=== PATIENT | male | born 1960 | race Hispanic/Latino ===

== ENCOUNTER → 2017-04-23 | Outpatient (CLI) | payer OTHER ==
[~2017-04-23] MED LIST: ATORVASTATIN CA10 MG PO; B COMPLEX WITH1 EAC1 PO; FOLIC ACID1 MG PO; GADOBUTROL 10 MMOL/10 ML VIAL IV ONE; INSULIN SQ; LACTULOSE20 GM/30 M PO; MULTI-VITAMIN1 EACH PO; OMEPRAZOLE40 MG PO; OSTERA TABLET1 EACH PO; PROPRANOLOL HCL10 MG PO; THIAMINE HCL100 MG PO; VIT K PO; XIFAXAN550 MG PO
--- NOTE | 2017-04-24 07:53 | Diagnostic Imaging Report ---
MRI abdomen, April 23, 2017 Clinical history: Possible liver mass on CT. Cirrhosis. Comparison: CT abdomen April 04, 2017 Technique: Multisequence, multiplanar liver protocol MRI before and after administration of 7.5 mL Gadavist intravenous contrast. Findings: Liver: Cirrhotic morphology with diffusely heterogeneous signal. Redemonstrated 1.7 cm focus of low signal within segment 8 without T2 hyperintensity or arterial enhancement. Gallbladder: Decompressed; normal Pancreas: Normal Spleen: Diffusely enlarged, with a span of 13 cm. Adrenal glands: Normal Kidneys: Normal Bowel: Image segments are grossly unremarkable. Mild thickening at the gastroesophageal junction with enhancement suggesting varices. Questionable adjacent GOV2 gastric varices. Vasculature: Normal caliber. Patent portal vein, with a diameter of 1.3 cm. Multiple splenic varices without conspicuous splenorenal shunt. Peritoneum: Normal. Specifically, no ascites. Study limitations: Extensive motion artifact limiting multiple sequences, including exclusion of the hepatic dome. Impression: 1. Cirrhotic liver with associated sequela of portal hypertension. 2. No evidence of focal liver mass. The questionable region noted on CT may represent focal scar. Continued attention to this region is needed on subsequent surveillance MRI. 3. Suspected gastroesophageal varices (GOV2) This report was generated with voice-recognition technology. Errors in airplane dispatcher can occur. Please interpret accordingly and contact a radiologist if there are any questions regarding the report. Signed by: Dr. Tucker Carmichael M.D. on 04/24/2017 7:49 AM
== END ==
LOC: MRI 16:35
PROVIDERS: ATTEND Internal Medicine Gastroenterology
DX: R10.84 Generalized abdominal pain (principal)
CPT/HCPCS: 74183; A9585

== ENCOUNTER → 2017-11-25 | Day surgery (SDC) | payer OTHER ==
[2017-11-18 16:22] LABS: BASOPHILS % 0.5 % (0.0-1.0); EOSINOPHILS # (AUTO) 0.1 (0.0-0.4); EOSINOPHILS % 2.2 % (0.0-6.0); HEMATOCRIT 35.9 % (38.2-49.6); HEMOGLOBIN 12.3 g/dL (14.0-18.0); LYMPHOCYTES # (AUTO) 1.5 (1.0-3.2); LYMPHOCYTES % 25.5 % (18.0-39.1); MEAN CORPUSCULAR HEMOGLOBIN 31.2 pg (28-32); MEAN CORPUSCULAR HGB CONC 34.3 g/dL (31-35); MEAN CORPUSCULAR VOLUME 91.1 fL (81-99); MONOCYTES # (AUTO) 0.7 (0.2-0.8); MONOCYTES % 12.4 % (4.4-11.3); NEUTROPHILS # (AUTO) 3.4 (2.1-6.9); NEUTROPHILS % 59.1 % (38.7-80.0); PLATELET COUNT 111 x10e3/uL (140-360); RED BLOOD COUNT 3.94 x10e6/uL (4.3-5.7)
[2017-11-18 16:57] LABS: INR 1.46; PROTHROMBIN TIME 16.7 seconds (11.9-14.5)
[2017-11-18 16:58] LABS: PARTIAL THROMBOPLASTIN TIME 37.5 seconds (23.8-35.5)
[2017-11-19 03:13] LABS: ALBUMIN 3.1 g/dL (3.5-5.0); ALBUMIN/GLOBULIN RATIO 0.6 (0.8-2.0); ALKALINE PHOSPHATASE 179 IU/L (40-150)
[2017-11-19 03:14] LABS: ANION GAP 13.9 mmol/L (8-16); BLOOD UREA NITROGEN 9 mg/dL (7-26); BUN/CREATININE RATIO 9 (6-25); CARBON DIOXIDE 23 mmol/L (22-29); CHLORIDE 102 mmol/L (98-107); CREATININE, SERUM 0.99 mg/dL (0.72-1.25); EST GLOMERULAR FILTRATION RATE > 60 ML/MIN (60-); GLUCOSE 344 mg/dL (74-118); POTASSIUM 3.9 mmol/L (3.5-5.1); SODIUM 135 mmol/L (136-145)
[2017-11-19 03:15] LABS: ALANINE AMINOTRANSFERASE 46 IU/L (0-55); CALCIUM 9.1 mg/dL (8.4-10.2)
[~2017-11-25] MED LIST changes: +DICYCLOMINE HCL10 MG; -GADOBUTROL 10 MMOL/10 ML VIAL IV ONE; +LEVEMIR100 UNIT/1; +LIDOCAINE HCL 2% LOCAL INJ 5 ML SDV VIAL INJ ONE; +PROMETHAZINE HC25 M1 PO; +PROPOFOL IV EMULSION 10 MG/ML 50 ML VIAL ONE
== END | disposition home or self-care (01) ==
LOC: OR 07:28
PROVIDERS: ATTEND Internal Medicine Gastroenterology
DX: K70.30 Alcoholic cirrhosis of liver without ascites (principal); K29.00 Acute gastritis without bleeding; I85.10 Secondary esophageal varices without bleeding; K29.50 Unspecified chronic gastritis without bleeding; K31.89 Other diseases of stomach and duodenum; B96.81 Helicobacter pylori [H. pylori] as the cause of diseases classified elsewhere; K76.6 Portal hypertension; K72.90 Hepatic failure, unspecified without coma; K21.9 Gastro-esophageal reflux disease without esophagitis; K44.9 Diaphragmatic hernia without obstruction or gangrene; I10 Essential (primary) hypertension; E11.9 Type 2 diabetes mellitus without complications; F41.9 Anxiety disorder, unspecified; F32.9 Major depressive disorder, single episode, unspecified; Z01.810 Encounter for preprocedural cardiovascular examination; Z01.812 Encounter for preprocedural laboratory examination; Z79.4 Long term (current) use of insulin
CPT/HCPCS: 36415 ×2; 43239; 80053; 82948; 85025; 85610; 85730; 93005; J2001

== ENCOUNTER → 2019-03-16 | Day surgery (SDC) | payer MEDICARE ==
[2019-03-08 10:28] LABS: BASOPHILS % 0.5 % (0.0-1.0); EOSINOPHILS # (AUTO) 0.2 (0.0-0.4); EOSINOPHILS % 2.7 % (0.0-6.0); HEMATOCRIT 35.3 % (38.2-49.6); HEMOGLOBIN 11.7 g/dL (14.0-18.0); LYMPHOCYTES # (AUTO) 1.1 (1.0-3.2); LYMPHOCYTES % 18.2 % (18.0-39.1); MEAN CORPUSCULAR HGB CONC 33.1 g/dL (31-35); MEAN CORPUSCULAR VOLUME 93.4 fL (81-99); MONOCYTES # (AUTO) 0.7 (0.2-0.8); MONOCYTES % 11.9 % (4.4-11.3); NEUTROPHILS % 66.4 % (38.7-80.0); PLATELET COUNT 123 x10e3/uL (140-360); RED BLOOD COUNT 3.78 x10e6/uL (4.3-5.7)
[2019-03-08 10:31] LABS: INR 1.33; PROTHROMBIN TIME 17.1 seconds (11.9-14.5)
[2019-03-08 10:32] LABS: PARTIAL THROMBOPLASTIN TIME 37.7 seconds (23.8-35.5)
[2019-03-08 10:39] LABS: ALANINE AMINOTRANSFERASE 31 IU/L (0-55); ALBUMIN 2.8 g/dL (3.5-5.0); ALBUMIN/GLOBULIN RATIO 0.6 (0.8-2.0); ALKALINE PHOSPHATASE 160 IU/L (40-150); ANION GAP 11.5 mmol/L (8-16); BLOOD UREA NITROGEN 9 mg/dL (7-26); BUN/CREATININE RATIO 10 (6-25); CALCIUM 9.1 mg/dL (8.4-10.2); CARBON DIOXIDE 25 mmol/L (22-29); CHLORIDE 100 mmol/L (98-107); CREATININE, SERUM 0.88 mg/dL (0.72-1.25); EST GLOMERULAR FILTRATION RATE > 60 ML/MIN (60-); GLUCOSE 377 mg/dL (74-118); POTASSIUM 4.5 mmol/L (3.5-5.1); SODIUM 132 mmol/L (136-145)
[~2019-03-16] MED LIST changes: +CENTRUM ADULTS1 EACH PO; +FAMOTIDINE20 MG PO; +FENTANYL CITRATE/PF 100MCG/2 ML INJ ONE; +FOLIC ACID-VIT1 EAC1 PO; +INSULIN REGULAR, HUMAN 100 UNIT/1 ML 3ML VIAL ONE; -LEVEMIR100 UNIT/1; +LEVEMIR100 UNIT/1 SQ; +LEXAPRO10 MG PO; -LIDOCAINE HCL 2% LOCAL INJ 5 ML SDV VIAL INJ ONE; +METOCLOPRAMIDE10 MG PO; +MIDAZOLAM HCL 2 MG/2 ML VIAL ONE; +VITAMIN B-121000 MCG PO
[2019-03-16 09:06] VITALS: BP 141/86
== END | disposition home or self-care (01) ==
LOC: OR 05:36
PROVIDERS: ATTEND Internal Medicine Gastroenterology
DX: K76.6 Portal hypertension (principal); K31.89 Other diseases of stomach and duodenum; K29.60 Other gastritis without bleeding; K70.30 Alcoholic cirrhosis of liver without ascites; I85.10 Secondary esophageal varices without bleeding; Q27.33 Arteriovenous malformation of digestive system vessel; K72.90 Hepatic failure, unspecified without coma; K21.9 Gastro-esophageal reflux disease without esophagitis; K64.8 Other hemorrhoids; R19.7 Diarrhea, unspecified; D64.9 Anemia, unspecified; R00.2 Palpitations; I10 Essential (primary) hypertension; E11.9 Type 2 diabetes mellitus without complications; Z01.810 Encounter for preprocedural cardiovascular examination; Z01.812 Encounter for preprocedural laboratory examination; Z79.4 Long term (current) use of insulin
CPT/HCPCS: 36415 ×2; 43239; 43244; 45378; 80053; 82948; 85025; 85610; 85730; 88305; 88312; 93005; J2250; J2704; J3010; 43255; J1817

== ENCOUNTER → 2019-04-13 | Day surgery (SDC) | payer MEDICARE ==
[2019-04-07 13:56] LABS: BASOPHILS % 0.6 % (0.0-1.0); EOSINOPHILS # (AUTO) 0.2 (0.0-0.4); EOSINOPHILS % 4.2 % (0.0-6.0); HEMATOCRIT 34.7 % (38.2-49.6); HEMOGLOBIN 11.5 g/dL (14.0-18.0); LYMPHOCYTES # (AUTO) 1.3 (1.0-3.2); LYMPHOCYTES % 26.5 % (18.0-39.1); MEAN CORPUSCULAR HEMOGLOBIN 30.3 pg (28-32); MEAN CORPUSCULAR HGB CONC 33.1 g/dL (31-35); MEAN CORPUSCULAR VOLUME 91.3 fL (81-99); MONOCYTES # (AUTO) 0.7 (0.2-0.8); MONOCYTES % 14.7 % (4.4-11.3); NEUTROPHILS # (AUTO) 2.7 (2.1-6.9); NEUTROPHILS % 53.8 % (38.7-80.0); PLATELET COUNT 123 x10e3/uL (140-360); RED CELL DISTRIBUTION WIDTH 15.1 % (11.7-14.4)
[2019-04-07 14:06] LABS: INR 1.32
[2019-04-07 14:16] LABS: ALANINE AMINOTRANSFERASE 28 IU/L (0-55); ALBUMIN 2.8 g/dL (3.5-5.0); ALBUMIN/GLOBULIN RATIO 0.6 (0.8-2.0); ALKALINE PHOSPHATASE 147 IU/L (40-150); BLOOD UREA NITROGEN 8 mg/dL (7-26); BUN/CREATININE RATIO 8 (6-25); CALCIUM 8.9 mg/dL (8.4-10.2); CARBON DIOXIDE 25 mmol/L (22-29); CHLORIDE 99 mmol/L (98-107); CREATININE, SERUM 0.96 mg/dL (0.72-1.25); EST GLOMERULAR FILTRATION RATE > 60 ML/MIN (60-); GLUCOSE 387 mg/dL (74-118); SODIUM 131 mmol/L (136-145)
[~2019-04-13] MED LIST changes: -INSULIN REGULAR, HUMAN 100 UNIT/1 ML 3ML VIAL ONE; +LIDOCAINE HCL 2% LOCAL INJ 5 ML SDV VIAL INJ ONE; +PROPOFOL IV EMULSION 10 MG/ML 20 ML VIAL ONE; -PROPOFOL IV EMULSION 10 MG/ML 50 ML VIAL ONE
[2019-04-13 16:00] VITALS: BP 123/83
== END | disposition home or self-care (01) ==
LOC: OR 11:52
PROVIDERS: ATTEND Internal Medicine Gastroenterology
DX: K31.89 Other diseases of stomach and duodenum (principal); E11.9 Type 2 diabetes mellitus without complications; I10 Essential (primary) hypertension; K70.30 Alcoholic cirrhosis of liver without ascites; K30 Functional dyspepsia; R13.10 Dysphagia, unspecified; K92.1 Melena; D64.9 Anemia, unspecified; R19.7 Diarrhea, unspecified; R00.2 Palpitations; I85.00 Esophageal varices without bleeding; K29.60 Other gastritis without bleeding; K29.50 Unspecified chronic gastritis without bleeding; K22.70 Barrett's esophagus without dysplasia; B96.81 Helicobacter pylori [H. pylori] as the cause of diseases classified elsewhere; Z01.812 Encounter for preprocedural laboratory examination; Z79.4 Long term (current) use of insulin
CPT/HCPCS: 36415 ×2; 43239; 43244; 80053; 82948; 85025; 85610; 85730; 88305; 88312; J2001; J2250; J2704; J3010; 43235

== ENCOUNTER → 2020-02-29 | Day surgery (SDC) | payer MEDICARE ==
[2020-02-25 16:19] LABS: BASOPHILS % 0.6 % (0.0-1.0); EOSINOPHILS # (AUTO) 0.3 (0.0-0.4); EOSINOPHILS % 3.5 % (0.0-6.0); HEMATOCRIT 38.5 % (38.2-49.6); HEMOGLOBIN 12.8 g/dL (14.0-18.0); LYMPHOCYTES # (AUTO) 1.3 (1.0-3.2); LYMPHOCYTES % 18.2 % (18.0-39.1); MEAN CORPUSCULAR HEMOGLOBIN 31.6 pg (28-32); MEAN CORPUSCULAR HGB CONC 33.2 g/dL (31-35); MEAN CORPUSCULAR VOLUME 95.1 fL (81-99); MONOCYTES # (AUTO) 0.9 (0.2-0.8); MONOCYTES % 12.3 % (4.4-11.3); NEUTROPHILS # (AUTO) 4.7 (2.1-6.9); PLATELET COUNT 145 x10e3/uL (140-360); RED BLOOD COUNT 4.05 x10e6/uL (4.3-5.7); RED CELL DISTRIBUTION WIDTH 15.5 % (11.7-14.4)
[2020-02-25 16:30] LABS: INR 1.22
[2020-02-25 16:31] LABS: PARTIAL THROMBOPLASTIN TIME 33.2 seconds (23.8-35.5)
[2020-02-25 16:42] LABS: ALBUMIN 2.8 g/dL (3.5-5.0); ALBUMIN/GLOBULIN RATIO 0.5 (0.8-2.0); ANION GAP 15.2 mmol/L (8-16); CALCIUM 9.2 mg/dL (8.4-10.2); CREATININE, SERUM 1.25 mg/dL (0.72-1.25); POTASSIUM 4.2 mmol/L (3.5-5.1)
[~2020-02-29] VITALS: Ht 154.9 cm; Wt 64.9 kg
[~2020-02-29] MED LIST changes: +ALBUTEROL0.63 MG/3 IH; +COMBIVENT RESPIM4 GM IH; +DEXTROSE 5% 250ML 250 ML IV ONE; -FENTANYL CITRATE/PF 100MCG/2 ML INJ ONE; +FERROUS SULFAT325 MG PO; +FLOMAX0.4 MG PO; +FUROSEMIDE40 MG PO; -LIDOCAINE HCL 2% LOCAL INJ 5 ML SDV VIAL INJ ONE; -MIDAZOLAM HCL 2 MG/2 ML VIAL ONE; +NOVOLIN R100 UNIT/1 SQ; +PANTOPRAZOLE SO40 MG PO; +SPIRONOLACTONE25 MG PO; +VITAMIN B-1100 M1 PO; +VITAMIN C500 M6 PO; +VITAMIN D325 MCG PO
[2020-02-29 12:30] VITALS: BP 118/77
== END | disposition home or self-care (01) ==
LOC: OR 08:18
PROVIDERS: ATTEND Internal Medicine Gastroenterology
DX: K70.30 Alcoholic cirrhosis of liver without ascites (principal); I85.10 Secondary esophageal varices without bleeding; K44.9 Diaphragmatic hernia without obstruction or gangrene; I86.4 Gastric varices; K29.60 Other gastritis without bleeding; K31.89 Other diseases of stomach and duodenum; K21.9 Gastro-esophageal reflux disease without esophagitis; R13.10 Dysphagia, unspecified; R19.7 Diarrhea, unspecified; E11.9 Type 2 diabetes mellitus without complications; I10 Essential (primary) hypertension; R06.02 Shortness of breath; R07.9 Chest pain, unspecified; R70.0 Elevated erythrocyte sedimentation rate; R93.89 Abnormal findings on diagnostic imaging of other specified body structures; Z01.810 Encounter for preprocedural cardiovascular examination; Z01.812 Encounter for preprocedural laboratory examination; Z11.59 Encounter for screening for other viral diseases; Z79.4 Long term (current) use of insulin
CPT/HCPCS: 36415 ×2; 43239; 80053; 82948; 85025; 85610; 85730; 88305; 88312; 88342; 93005; J7070; U0002

== ENCOUNTER → 2020-05-10 | Outpatient (CLI) | payer MEDICARE ==
[~2020-05-10] MED LIST changes: -DEXTROSE 5% 250ML 250 ML IV ONE; -PROPOFOL IV EMULSION 10 MG/ML 20 ML VIAL ONE
== END ==
LOC: US 07:53
PROVIDERS: ATTEND Internal Medicine Gastroenterology
DX: K70.30 Alcoholic cirrhosis of liver without ascites (principal); R19.7 Diarrhea, unspecified
CPT/HCPCS: 76705; 78804

== ENCOUNTER 2020-05-14 13:52 | Inpatient (IN) | payer MEDICARE ==
[~2020-05-14] VITALS: Ht 172.7 cm; Wt 102.1 kg
[2020-05-14 14:58] LABS: BASOPHILS % 0.2 % (0.0-1.0); HEMATOCRIT 40.4 % (38.2-49.6); HEMOGLOBIN 13.5 g/dL (14.0-18.0); LYMPHOCYTES # (AUTO) 0.8 (1.0-3.2); LYMPHOCYTES % 4.3 % (18.0-39.1); MEAN CORPUSCULAR HEMOGLOBIN 32.1 pg (28-32); MEAN CORPUSCULAR HGB CONC 33.4 g/dL (31-35); MONOCYTES # (AUTO) 1.1 (0.2-0.8); MONOCYTES % 5.6 % (4.4-11.3); NEUTROPHILS # (AUTO) 17.5 (2.1-6.9); NEUTROPHILS % 89.4 % (38.7-80.0); PLATELET COUNT 147 x10e3/uL (140-360); RED BLOOD COUNT 4.21 x10e6/uL (4.3-5.7); RED CELL DISTRIBUTION WIDTH 14.3 % (11.7-14.4)
[2020-05-14 15:04] LABS: INR 1.33; PROTHROMBIN TIME 17.4 seconds (11.9-14.5)
[2020-05-14 15:05] LABS: PARTIAL THROMBOPLASTIN TIME 36.7 seconds (23.8-35.5)
[2020-05-14 15:11] LABS: ALANINE AMINOTRANSFERASE 32 IU/L (0-55); ALBUMIN 2.9 g/dL (3.5-5.0); ALBUMIN/GLOBULIN RATIO 0.5 (0.8-2.0); ALKALINE PHOSPHATASE 173 IU/L (40-150); ANION GAP 15.8 mmol/L (8-16); BLOOD UREA NITROGEN 15 mg/dL (7-26); BUN/CREATININE RATIO 15 (6-25); CALCIUM 8.6 mg/dL (8.4-10.2); CARBON DIOXIDE 20 mmol/L (22-29); CHLORIDE 105 mmol/L (98-107); CREATINE KINASE 181 IU/L (30-200); CREATININE, SERUM 0.98 mg/dL (0.72-1.25); EST GLOMERULAR FILTRATION RATE > 60 ML/MIN (60-); GLUCOSE 89 mg/dL (74-118); LIPASE 8 U/L (8-78); POTASSIUM 4.8 mmol/L (3.5-5.1); SODIUM 136 mmol/L (136-145)
[2020-05-14] MEDS ORDERED: CEFEPIME 2 GM/NS 0.9% 100 ML 100 ML IV SCH (15:45)
[2020-05-14] MEDS: AZITHROMYCIN 500MG/NS 250 ML 250 ML IV SCH (16:47)
[2020-05-14] MEDS ORDERED: IOPAMIDOL 370 MG/ML 200 ML INFUS..BTL INJ ONE (16:49)
[2020-05-14] MEDS ORDERED: SODIUM CHLORIDE 0.9% 50ML 50 ML ONE (16:49)
[2020-05-14] MEDS: PIPER-TAZ 3.375 GM 50 ML IV SCH ×2 (17:43→18:51)
[2020-05-14] MEDS ORDERED: PIPER-TAZ 3.375 GM 50 ML IV SCH (18:00)
[2020-05-14] MEDS ORDERED: ALBUTEROL SULF 0.083% NEB SOLN 3 ML NEB NEB PRN (18:15)
[2020-05-14] MEDS ORDERED: VANCOMYCIN HCL 1GM/NS 250 ML BAG IV ONE (18:15)
[2020-05-14] MEDS ORDERED: DEXTROSE 50% SYRINGE 50 ML IV PRN (18:15)
[2020-05-14] MEDS ORDERED: VANCOMYCIN 1GM/NS 250 ML 250 ML IV ONE (18:30)
[2020-05-14] MEDS: LEVETIRACETAM 500MG/5ML VIAL 1,000 MG in SODIUM CHLORIDE 0.9% 100 ML 100 ML IV ONE ×2 (18:49→19:26)
[2020-05-14] MEDS ORDERED: LEVETIRACETAM 500 MG/5 ML VIAL IV ONE ×2 (19:25→19:31)
[2020-05-14] MEDS ORDERED: SODIUM CHLORIDE 0.9% 100 ML ONE (19:26)
[2020-05-14] MEDS: INSULIN LISPRO 100 UNIT/1 ML 3ML VIAL SQ SCH (21:00)
[2020-05-14 21:15] VITALS: BP 133/71
[2020-05-14 22:33] VITALS: BP 133/71
[2020-05-14 22:48] VITALS: BP 133/71
[2020-05-14] MEDS ORDERED: LEVETIRACETAM 500MG/5ML VIAL 1,500 MG in SODIUM CHLORIDE 0.9% 100 ML 100 ML IV SCH (23:15)
[2020-05-14] MEDS ORDERED: LORAZEPAM INJ 2 MG/ML VIAL IV PRN (23:15)
[2020-05-14] MEDS ORDERED: HYDRALAZINE HCL 20 MG/ML VIAL IV PRN (23:30)
[2020-05-14] MEDS ORDERED: ACETAMINOPHEN 325 MG TAB PO PRN (23:30)
[2020-05-14] MEDS ORDERED: ONDANSETRON HCL INJ 2MG/ML 2ML 2 MG/ML VIAL IV PRN (23:30)
[2020-05-14] MEDS ORDERED: LORAZEPAM INJ 2 MG/ML VIAL IV ONE ×2 (23:30→23:45)
[2020-05-14] MEDS ORDERED: ACETAMINOPHEN 650 MG SUPP PR PRN (23:30)
[2020-05-15] VITALS (8 sets, daily range): BP systolic 105–137; BP diastolic 57–81
[2020-05-15] MEDS ORDERED: SODIUM CHLORIDE 0.9% 250ML 250 ML ONE (00:02)
[2020-05-15] MEDS ORDERED: HEPARIN 25,000 UNIT DRIP IV ONE (00:51)
[2020-05-15] MEDS ORDERED: LEVETIRACETAM 500 MG/5 ML VIAL IV ONE (00:53)
[2020-05-15 01:09] LABS: CREATINE KINASE MB 1.5 ng/mL (0-5.0)
[2020-05-15] MEDS: PIPER-TAZ 3.375 GM 50 ML IV SCH ×5 (06:00→23:58)
[2020-05-15 06:11] LABS: BASOPHILS # (AUTO) 0.1 (0.0-0.1); BASOPHILS % 0.3 % (0.0-1.0); EOSINOPHILS # (AUTO) 0.1 (0.0-0.4); EOSINOPHILS % 0.4 % (0.0-6.0); HEMATOCRIT 37.2 % (38.2-49.6); HEMOGLOBIN 12.1 g/dL (14.0-18.0); LYMPHOCYTES # (AUTO) 1.2 (1.0-3.2); LYMPHOCYTES % 6.8 % (18.0-39.1); MEAN CORPUSCULAR HEMOGLOBIN 32.4 pg (28-32); MEAN CORPUSCULAR HGB CONC 32.5 g/dL (31-35); MEAN CORPUSCULAR VOLUME 99.7 fL (81-99); MONOCYTES # (AUTO) 1.4 (0.2-0.8); MONOCYTES % 7.8 % (4.4-11.3); NEUTROPHILS # (AUTO) 15.3 (2.1-6.9); PLATELET COUNT 105 x10e3/uL (140-360); RED BLOOD COUNT 3.73 x10e6/uL (4.3-5.7); RED CELL DISTRIBUTION WIDTH 14.5 % (11.7-14.4)
[2020-05-15 06:21] LABS: CLARITY,URINE CLEAR (CLEAR); COLOR,URINE YELLOW (YELLOW)
[2020-05-15 06:22] LABS: KETONES,URINE NEGATIVE (NEGATIVE); LEUKOCYTE ESTERASE ,URINE NEGATIVE (NEGATIVE); NITRITE,URINE NEGATIVE (NEGATIVE); PROTEIN,URINE DIPSTICK 1+ (NEGATIVE); URINE UROBILINOGEN 0.2 mg/dL (0.2 - 1)
[2020-05-15 06:40] LABS: RBC,URINE 21-50 /HPF (0-5); WBC,URINE (MAN) 21-50 /HPF (0-5)
[2020-05-15 06:41] LABS: BACTERIA,URINE RARE /HPF; EPITHELIAL CELLS,URINE FEW /LPF
[2020-05-15 06:47] LABS: ALANINE AMINOTRANSFERASE 26 IU/L (0-55); ALBUMIN 2.4 g/dL (3.5-5.0); ALBUMIN/GLOBULIN RATIO 0.5 (0.8-2.0); ALKALINE PHOSPHATASE 144 IU/L (40-150); ANION GAP 17.2 mmol/L (8-16); BLOOD UREA NITROGEN 20 mg/dL (7-26); BUN/CREATININE RATIO 18 (6-25); CALCIUM 8.2 mg/dL (8.4-10.2); CARBON DIOXIDE 18 mmol/L (22-29); CHLORIDE 107 mmol/L (98-107); CREATININE, SERUM 1.14 mg/dL (0.72-1.25); EST GLOMERULAR FILTRATION RATE > 60 ML/MIN (60-); GLUCOSE 142 mg/dL (74-118); POTASSIUM 4.2 mmol/L (3.5-5.1); SODIUM 138 mmol/L (136-145)
[2020-05-15 07:13] LABS: MAGNESIUM 1.8 MG/DL (1.3-2.1); PHOSPHORUS 3.7 MG/DL (2.3-4.7)
[2020-05-15 07:27] LABS: CREATINE KINASE 168 IU/L (30-200)
[2020-05-15] MEDS: INSULIN LISPRO 100 UNIT/1 ML 3ML VIAL SQ SCH ×4 (07:30→21:21)
[2020-05-15] MEDS: INSULIN REGULAR, HUMAN 100 UNIT/1 ML 3ML VIAL SQ SCH ×2 (09:00→17:00)
[2020-05-15] MEDS: METOCLOPRAMIDE HCL 10 MG TAB PO SCH ×2 (09:30→17:00)
[2020-05-15] MEDS: CYANOCOBALAMIN 1,000 MCG TAB PO SCH (09:30)
[2020-05-15] MEDS: TAMSULOSIN HCL 0.4 MG CAP PO SCH (09:33)
[2020-05-15] MEDS: PROPRANOLOL HCL 10 MG TAB PO SCH ×2 (09:33→17:00)
[2020-05-15] MEDS: LACTULOSE SYRUP 20 GM/30 ML UDC PO SCH ×3 (09:33→21:20)
[2020-05-15] MEDS: SPIRONOLACTONE 25 MG TAB PO SCH (09:33)
[2020-05-15] MEDS: FERROUS SULFATE 325 MG TAB PO SCH (09:33)
[2020-05-15] MEDS: FOLIC ACID 1 MG TAB PO SCH (09:33)
[2020-05-15] MEDS: THIAMINE HCL 100 MG TAB PO SCH (09:34)
[2020-05-15] MEDS: PANTOPRAZOLE SOD 40 MG TABEC PO SCH (09:34)
[2020-05-15] MEDS: MULTIVITAMINS/MINERALS TAB PO SCH (09:34)
[2020-05-15] MEDS: RIFAXIMIN 550 MG TABLET PO SCH ×2 (09:34→17:00)
[2020-05-15] MEDS: LEVETIRACETAM 500MG/5ML VIAL 1,500 MG in SODIUM CHLORIDE 0.9% 100 ML 100 ML IV SCH ×2 (09:48→20:25)
[2020-05-15] MEDS: FUROSEMIDE 40 MG TAB PO SCH (09:48)
[2020-05-15] MEDS ORDERED: ALBUMIN 25% 12.5GM 50ML 0 ML IV ONE (11:22)
[2020-05-15] MEDS ORDERED: ALBUMIN 25% 12.5GM 50ML 50 ML IV ONE (12:18)
[2020-05-15 13:39] LABS: BODY FLUID TYPE PERITONEAL
[2020-05-15 13:40] LABS: BODY FLUID APPEARANCE CLOUDY; BODY FLUID COLOR YELLOW; RBC,BODY FLUID 2647 cells/uL; WBC,BODY FLUID 526 cells/uL
[2020-05-15 13:49] LABS: LYMPHOCYTES,BODY FLUID 17 %; MONO/MACROPHG,BODY FLUID 24 %; NEUTROPHILS,BODY FLUID 59 %
[2020-05-15 14:39] LABS: CREATINE KINASE 133 IU/L (30-200)
[2020-05-15] MEDS: AZITHROMYCIN 500MG/NS 250 ML 250 ML IV SCH (15:45)
[2020-05-15] MEDS ORDERED: METHYLPREDNISOLONE SOD SUCC 125 MG/2ML VIAL IV ONE (17:45)
[2020-05-15] MEDS: DEXTROSE 5% 1,000 ML IV SCH (21:19)
[2020-05-16] VITALS (8 sets, daily range): BP systolic 92–131; BP diastolic 70–78
[2020-05-16] MEDS: PIPER-TAZ 3.375 GM 50 ML IV SCH ×4 (05:27→23:27)
[2020-05-16] MEDS: INSULIN LISPRO 100 UNIT/1 ML 3ML VIAL SQ SCH ×4 (07:30→22:05)
[2020-05-16] MEDS: LEVETIRACETAM 500MG/5ML VIAL 1,500 MG in SODIUM CHLORIDE 0.9% 100 ML 100 ML IV SCH ×2 (07:30→21:16)
[2020-05-16 07:38] LABS: EOSINOPHILS % 0.2 % (0.0-6.0); HEMATOCRIT 34.4 % (38.2-49.6); HEMOGLOBIN 11.1 g/dL (14.0-18.0); LYMPHOCYTES # (AUTO) 0.5 (1.0-3.2); LYMPHOCYTES % 7.4 % (18.0-39.1); MEAN CORPUSCULAR HEMOGLOBIN 32.3 pg (28-32); MEAN CORPUSCULAR HGB CONC 32.3 g/dL (31-35); MONOCYTES # (AUTO) 0.1 (0.2-0.8); MONOCYTES % 1.8 % (4.4-11.3); NEUTROPHILS # (AUTO) 5.6 (2.1-6.9); PLATELET COUNT 88 x10e3/uL (140-360); RED BLOOD COUNT 3.44 x10e6/uL (4.3-5.7); RED CELL DISTRIBUTION WIDTH 14.1 % (11.7-14.4)
[2020-05-16 09:23] LABS: ALBUMIN 2.6 g/dL (3.5-5.0); ALBUMIN/GLOBULIN RATIO 0.5 (0.8-2.0); ANION GAP 14.8 mmol/L (8-16); CALCIUM 8.2 mg/dL (8.4-10.2); CREATININE, SERUM 1.23 mg/dL (0.72-1.25); POTASSIUM 4.8 mmol/L (3.5-5.1)
[2020-05-16] MEDS: SPIRONOLACTONE 25 MG TAB PO SCH (09:32)
[2020-05-16] MEDS: FOLIC ACID 1 MG TAB PO SCH (09:33)
[2020-05-16] MEDS: METOCLOPRAMIDE HCL 10 MG TAB PO SCH ×2 (09:33→18:58)
[2020-05-16] MEDS: PANTOPRAZOLE SOD 40 MG TABEC PO SCH (09:33)
[2020-05-16] MEDS: PROPRANOLOL HCL 10 MG TAB PO SCH ×2 (09:33→18:58)
[2020-05-16] MEDS: LACTULOSE SYRUP 20 GM/30 ML UDC PO SCH ×3 (09:33→21:16)
[2020-05-16] MEDS: CYANOCOBALAMIN 1,000 MCG TAB PO SCH (09:33)
[2020-05-16] MEDS: FERROUS SULFATE 325 MG TAB PO SCH (09:33)
[2020-05-16] MEDS: RIFAXIMIN 550 MG TABLET PO SCH ×2 (09:33→18:58)
[2020-05-16] MEDS: MULTIVITAMINS/MINERALS TAB PO SCH (09:33)
[2020-05-16] MEDS: FUROSEMIDE 40 MG TAB PO SCH (09:33)
[2020-05-16] MEDS: TAMSULOSIN HCL 0.4 MG CAP PO SCH (09:33)
[2020-05-16] MEDS: THIAMINE HCL 100 MG TAB PO SCH (09:34)
[2020-05-16] MEDS: INSULIN REGULAR, HUMAN 100 UNIT/1 ML 3ML VIAL SQ SCH ×2 (11:57→17:00)
[2020-05-16] MEDS: AZITHROMYCIN 500MG/NS 250 ML 250 ML IV SCH (15:45)
[2020-05-16] MEDS: DEXTROSE 5% 1,000 ML IV SCH (16:28)
[2020-05-17] VITALS (7 sets, daily range): BP systolic 124–138; BP diastolic 65–81
[2020-05-17] MEDS: PIPER-TAZ 3.375 GM 50 ML IV SCH ×4 (05:17→23:57)
[2020-05-17 06:28] LABS: BLOOD UREA NITROGEN 26 mg/dL (7-26); BUN/CREATININE RATIO 24 (6-25); CALCIUM 8.5 mg/dL (8.4-10.2); CARBON DIOXIDE 18 mmol/L (22-29); CHLORIDE 113 mmol/L (98-107); CREATININE, SERUM 1.07 mg/dL (0.72-1.25); EST GLOMERULAR FILTRATION RATE > 60 ML/MIN (60-); GLUCOSE 152 mg/dL (74-118); SODIUM 141 mmol/L (136-145)
[2020-05-17] MEDS: SPIRONOLACTONE 25 MG TAB PO SCH (08:36)
[2020-05-17] MEDS: TAMSULOSIN HCL 0.4 MG CAP PO SCH (08:37)
[2020-05-17] MEDS: FOLIC ACID 1 MG TAB PO SCH (08:37)
[2020-05-17] MEDS: RIFAXIMIN 550 MG TABLET PO SCH ×2 (08:37→17:38)
[2020-05-17] MEDS: THIAMINE HCL 100 MG TAB PO SCH (08:37)
[2020-05-17] MEDS: CYANOCOBALAMIN 1,000 MCG TAB PO SCH (08:38)
[2020-05-17] MEDS: LACTULOSE SYRUP 20 GM/30 ML UDC PO SCH ×3 (08:39→20:53)
[2020-05-17] MEDS: PROPRANOLOL HCL 10 MG TAB PO SCH ×2 (08:39→17:38)
[2020-05-17] MEDS: MULTIVITAMINS/MINERALS TAB PO SCH (08:40)
[2020-05-17] MEDS: PANTOPRAZOLE SOD 40 MG TABEC PO SCH (08:40)
[2020-05-17] MEDS: METOCLOPRAMIDE HCL 10 MG TAB PO SCH ×2 (08:40→17:38)
[2020-05-17] MEDS: INSULIN REGULAR, HUMAN 100 UNIT/1 ML 3ML VIAL SQ SCH ×2 (09:20→17:00)
[2020-05-17] MEDS: INSULIN LISPRO 100 UNIT/1 ML 3ML VIAL SQ SCH ×4 (09:26→20:13)
[2020-05-17] MEDS: FUROSEMIDE 40 MG TAB PO SCH (09:36)
[2020-05-17] MEDS: FERROUS SULFATE 325 MG TAB PO SCH (09:36)
[2020-05-17] MEDS: LEVETIRACETAM 500MG/5ML VIAL 1,500 MG in SODIUM CHLORIDE 0.9% 100 ML 100 ML IV SCH (09:36)
[2020-05-17] MEDS ORDERED: ALBUMIN 25% 12.5GM 0.25 GM/ML BTL IV ONE (13:45)
[2020-05-17] MEDS: AZITHROMYCIN 500MG/NS 250 ML 250 ML IV SCH (17:26)
[2020-05-17] MEDS ORDERED: LEVETIRACETAM 500MG/5ML VIAL 1,000 MG in SODIUM CHLORIDE 0.9% 100 ML 100 ML IV SCH (18:30)
[2020-05-17] MEDS: LEVETIRACETAM 500MG/5ML VIAL 1,000 MG in SODIUM CHLORIDE 0.9% 100 ML 100 ML IV SCH (19:52)
[2020-05-18] VITALS (8 sets, daily range): BP systolic 101–152; BP diastolic 53–93
[2020-05-18] MEDS: PIPER-TAZ 3.375 GM 50 ML IV SCH (05:17)
[2020-05-18] MEDS: INSULIN LISPRO 100 UNIT/1 ML 3ML VIAL SQ SCH ×4 (07:30→20:49)
[2020-05-18] MEDS: LEVETIRACETAM 500MG/5ML VIAL 1,000 MG in SODIUM CHLORIDE 0.9% 100 ML 100 ML IV SCH ×2 (08:32→19:56)
[2020-05-18] MEDS: SPIRONOLACTONE 25 MG TAB PO SCH (08:45)
[2020-05-18] MEDS: FOLIC ACID 1 MG TAB PO SCH (08:45)
[2020-05-18] MEDS: TAMSULOSIN HCL 0.4 MG CAP PO SCH (08:45)
[2020-05-18] MEDS: FERROUS SULFATE 325 MG TAB PO SCH (08:45)
[2020-05-18] MEDS: PROPRANOLOL HCL 10 MG TAB PO SCH ×2 (08:46→17:39)
[2020-05-18] MEDS: RIFAXIMIN 550 MG TABLET PO SCH ×2 (08:47→17:35)
[2020-05-18] MEDS: MULTIVITAMINS/MINERALS TAB PO SCH (08:47)
[2020-05-18] MEDS: PANTOPRAZOLE SOD 40 MG TABEC PO SCH (08:47)
[2020-05-18] MEDS: CYANOCOBALAMIN 1,000 MCG TAB PO SCH (08:47)
[2020-05-18] MEDS: LACTULOSE SYRUP 20 GM/30 ML UDC PO SCH ×4 (08:47→20:48)
[2020-05-18] MEDS: FUROSEMIDE 40 MG TAB PO SCH (08:47)
[2020-05-18] MEDS: THIAMINE HCL 100 MG TAB PO SCH (08:47)
[2020-05-18] MEDS: METOCLOPRAMIDE HCL 10 MG TAB PO SCH ×2 (08:47→17:35)
[2020-05-18] MEDS: INSULIN REGULAR, HUMAN 100 UNIT/1 ML 3ML VIAL SQ SCH ×2 (09:04→17:00)
[2020-05-18] MEDS ORDERED: ALBUMIN 25% 25GM 100ML 0.25 GM/ML BTL IV ONE (11:45)
[2020-05-18] MEDS ORDERED: ALBUMIN 25% 12.5GM 50ML 100 ML IV ONE (12:00)
[2020-05-18 12:42] LABS: BASOPHILS % 0.2 % (0.0-1.0); EOSINOPHILS # (AUTO) 0.4 (0.0-0.4); HEMATOCRIT 38.1 % (38.2-49.6); HEMOGLOBIN 12.6 g/dL (14.0-18.0); LYMPHOCYTES # (AUTO) 0.6 (1.0-3.2); LYMPHOCYTES % 10.8 % (18.0-39.1); MEAN CORPUSCULAR HEMOGLOBIN 32.4 pg (28-32); MEAN CORPUSCULAR HGB CONC 33.1 g/dL (31-35); MEAN CORPUSCULAR VOLUME 97.9 fL (81-99); MONOCYTES # (AUTO) 0.7 (0.2-0.8); MONOCYTES % 13.3 % (4.4-11.3); NEUTROPHILS # (AUTO) 3.5 (2.1-6.9); NEUTROPHILS % 67.7 % (38.7-80.0); PLATELET COUNT 95 x10e3/uL (140-360); RED BLOOD COUNT 3.89 x10e6/uL (4.3-5.7); RED CELL DISTRIBUTION WIDTH 14.3 % (11.7-14.4)
[2020-05-18 13:15] LABS: INR 1.64; PROTHROMBIN TIME 20.6 seconds (11.9-14.5)
[2020-05-18 13:16] LABS: PARTIAL THROMBOPLASTIN TIME 33.9 seconds (23.8-35.5)
[2020-05-18 13:25] LABS: ALANINE AMINOTRANSFERASE 39 IU/L (0-55); ALBUMIN 2.7 g/dL (3.5-5.0); ALBUMIN/GLOBULIN RATIO 0.6 (0.8-2.0); ALKALINE PHOSPHATASE 145 IU/L (40-150); AMYLASE 38 U/L (25-125); ANION GAP 12.7 mmol/L (8-16); BLOOD UREA NITROGEN 24 mg/dL (7-26); BUN/CREATININE RATIO 24 (6-25); CALCIUM 8.8 mg/dL (8.4-10.2); CARBON DIOXIDE 21 mmol/L (22-29); CHLORIDE 112 mmol/L (98-107); CREATININE, SERUM 1.01 mg/dL (0.72-1.25); EST GLOMERULAR FILTRATION RATE > 60 ML/MIN (60-); GLUCOSE 180 mg/dL (74-118); POTASSIUM 3.7 mmol/L (3.5-5.1); SODIUM 142 mmol/L (136-145)
[2020-05-18] MEDS: CEFTRIAXONE SOD 2 GM/NS 100 ML 100 ML IV SCH (16:01)
[2020-05-18 16:44] LABS: CLARITY,URINE SL CLOUDY (CLEAR); COLOR,URINE YELLOW (YELLOW)
[2020-05-18 16:45] LABS: KETONES,URINE NEGATIVE (NEGATIVE); LEUKOCYTE ESTERASE ,URINE TRACE (NEGATIVE); NITRITE,URINE NEGATIVE (NEGATIVE); PROTEIN,URINE DIPSTICK 2+ (NEGATIVE); URINE UROBILINOGEN 0.2 mg/dL (0.2 - 1)
[2020-05-18 16:54] LABS: BACTERIA,URINE MODERATE /HPF; RBC,URINE 21-50 /HPF (0-5); WBC,URINE (MAN) 0-5 /HPF (0-5)
[2020-05-18 16:55] LABS: YEAST,URINE MODERATE
[2020-05-18] MEDS: AZITHROMYCIN 500MG/NS 250 ML 250 ML IV SCH (17:34)
[2020-05-18] MEDS ORDERED: SODIUM CHLORIDE 0.9% 250ML 250 ML ONE (19:57)
[2020-05-19] VITALS (10 sets, daily range): BP systolic 88–162; BP diastolic 38–92
[2020-05-19] MEDS ORDERED: IOPAMIDOL 370 MG/ML 200 ML INFUS..BTL INJ ONE (01:23)
[2020-05-19] MEDS ORDERED: SODIUM CHLORIDE 0.9% 100 ML ONE (01:24)
[2020-05-19] MEDS: INSULIN LISPRO 100 UNIT/1 ML 3ML VIAL SQ SCH ×4 (07:30→20:48)
[2020-05-19] MEDS: LEVETIRACETAM 500MG/5ML VIAL 1,000 MG in SODIUM CHLORIDE 0.9% 100 ML 100 ML IV SCH ×2 (08:45→20:47)
[2020-05-19] MEDS: RIFAXIMIN 550 MG TABLET PO SCH ×3 (08:46→18:00)
[2020-05-19] MEDS: PROPRANOLOL HCL 10 MG TAB PO SCH ×3 (08:46→18:00)
[2020-05-19] MEDS: METOCLOPRAMIDE HCL 10 MG TAB PO SCH ×2 (08:46→18:00)
[2020-05-19] MEDS: INSULIN REGULAR, HUMAN 100 UNIT/1 ML 3ML VIAL SQ SCH ×2 (09:00→17:00)
[2020-05-19 11:32] LABS: APPEARANCE,CSF CLEAR (CLEAR); COLOR,CSF COLORLESS (COLORLESS); TUBE NUMBER 3
[2020-05-19 11:34] LABS: WHITE BLOOD CELL,CSF 0 cells/uL (0-5)
[2020-05-19] MEDS: FERROUS SULFATE 325 MG TAB PO SCH (12:15)
[2020-05-19] MEDS: MULTIVITAMINS/MINERALS TAB PO SCH (12:15)
[2020-05-19] MEDS: PANTOPRAZOLE SOD 40 MG TABEC PO SCH (12:15)
[2020-05-19] MEDS: SPIRONOLACTONE 25 MG TAB PO SCH (12:15)
[2020-05-19] MEDS: FOLIC ACID 1 MG TAB PO SCH (12:15)
[2020-05-19] MEDS: THIAMINE HCL 100 MG TAB PO SCH (12:15)
[2020-05-19] MEDS: TAMSULOSIN HCL 0.4 MG CAP PO SCH (12:15)
[2020-05-19] MEDS: FUROSEMIDE 40 MG TAB PO SCH (12:15)
[2020-05-19] MEDS: CYANOCOBALAMIN 1,000 MCG TAB PO SCH (12:15)
[2020-05-19] MEDS: CEFTRIAXONE SOD 2 GM/NS 100 ML 100 ML IV SCH (14:19)
[2020-05-19] MEDS: LACTULOSE SYRUP 20 GM/30 ML UDC PO SCH ×2 (18:00→20:47)
[2020-05-20] VITALS (7 sets, daily range): BP systolic 110–163; BP diastolic 67–85
[2020-05-20] MEDS: INSULIN LISPRO 100 UNIT/1 ML 3ML VIAL SQ SCH ×4 (07:30→21:00)
[2020-05-20] MEDS: LEVETIRACETAM 500MG/5ML VIAL 1,000 MG in SODIUM CHLORIDE 0.9% 100 ML 100 ML IV SCH ×2 (07:30→19:30)
[2020-05-20] MEDS: INSULIN REGULAR, HUMAN 100 UNIT/1 ML 3ML VIAL SQ SCH ×2 (09:00→18:07)
[2020-05-20] MEDS: TAMSULOSIN HCL 0.4 MG CAP PO SCH (09:40)
[2020-05-20] MEDS: FERROUS SULFATE 325 MG TAB PO SCH (09:40)
[2020-05-20] MEDS: FOLIC ACID 1 MG TAB PO SCH (09:40)
[2020-05-20] MEDS: SPIRONOLACTONE 25 MG TAB PO SCH (09:40)
[2020-05-20] MEDS: FUROSEMIDE 40 MG TAB PO SCH (09:40)
[2020-05-20] MEDS: PROPRANOLOL HCL 10 MG TAB PO SCH ×2 (09:40→17:53)
[2020-05-20] MEDS: MULTIVITAMINS/MINERALS TAB PO SCH (09:40)
[2020-05-20] MEDS: RIFAXIMIN 550 MG TABLET PO SCH ×2 (09:41→17:54)
[2020-05-20] MEDS: METOCLOPRAMIDE HCL 10 MG TAB PO SCH ×2 (09:41→17:54)
[2020-05-20] MEDS: PANTOPRAZOLE SOD 40 MG TABEC PO SCH (09:41)
[2020-05-20] MEDS: CYANOCOBALAMIN 1,000 MCG TAB PO SCH (09:41)
[2020-05-20] MEDS: THIAMINE HCL 100 MG TAB PO SCH (09:41)
[2020-05-20] MEDS: LACTULOSE SYRUP 20 GM/30 ML UDC PO SCH ×3 (11:00→21:47)
[2020-05-21] VITALS (8 sets, daily range): BP systolic 109–144; BP diastolic 59–112
[2020-05-21] MEDS: LEVOFLOXACIN 500 MG TAB PO SCH (05:51)
[2020-05-21] MEDS: INSULIN LISPRO 100 UNIT/1 ML 3ML VIAL SQ SCH ×4 (07:30→20:51)
[2020-05-21] MEDS: INSULIN REGULAR, HUMAN 100 UNIT/1 ML 3ML VIAL SQ SCH ×2 (09:00→17:27)
[2020-05-21] MEDS: FERROUS SULFATE 325 MG TAB PO SCH (09:10)
[2020-05-21] MEDS: FOLIC ACID 1 MG TAB PO SCH (09:10)
[2020-05-21] MEDS: FUROSEMIDE 40 MG TAB PO SCH (09:10)
[2020-05-21] MEDS: CYANOCOBALAMIN 1,000 MCG TAB PO SCH (09:10)
[2020-05-21] MEDS: LEVETIRACETAM 500 MG TAB PO SCH ×2 (09:10→17:26)
[2020-05-21] MEDS: PANTOPRAZOLE SOD 40 MG TABEC PO SCH (09:10)
[2020-05-21] MEDS: MULTIVITAMINS/MINERALS TAB PO SCH (09:10)
[2020-05-21] MEDS: SPIRONOLACTONE 25 MG TAB PO SCH (09:10)
[2020-05-21] MEDS: RIFAXIMIN 550 MG TABLET PO SCH ×2 (09:10→17:26)
[2020-05-21] MEDS: THIAMINE HCL 100 MG TAB PO SCH (09:10)
[2020-05-21] MEDS: METOCLOPRAMIDE HCL 10 MG TAB PO SCH ×2 (09:10→17:26)
[2020-05-21] MEDS: TAMSULOSIN HCL 0.4 MG CAP PO SCH (09:10)
[2020-05-21] MEDS: PROPRANOLOL HCL 10 MG TAB PO SCH ×2 (09:11→17:26)
[2020-05-21] MEDS: LACTULOSE SYRUP 20 GM/30 ML UDC PO SCH ×2 (09:11→20:59)
[2020-05-22] VITALS (7 sets, daily range): BP systolic 109–131; BP diastolic 66–96
[2020-05-22] MEDS: LEVOFLOXACIN 500 MG TAB PO SCH (05:04)
[2020-05-22 06:16] LABS: BASOPHILS % 0.2 % (0.0-1.0); EOSINOPHILS # (AUTO) 0.4 (0.0-0.4); EOSINOPHILS % 5.2 % (0.0-6.0); HEMATOCRIT 42.5 % (38.2-49.6); HEMOGLOBIN 13.9 g/dL (14.0-18.0); LYMPHOCYTES # (AUTO) 0.9 (1.0-3.2); LYMPHOCYTES % 10.8 % (18.0-39.1); MEAN CORPUSCULAR HEMOGLOBIN 32.4 pg (28-32); MEAN CORPUSCULAR HGB CONC 32.7 g/dL (31-35); MEAN CORPUSCULAR VOLUME 99.1 fL (81-99); MONOCYTES # (AUTO) 0.9 (0.2-0.8); MONOCYTES % 11.3 % (4.4-11.3); NEUTROPHILS # (AUTO) 5.7 (2.1-6.9); NEUTROPHILS % 71.6 % (38.7-80.0); RED BLOOD COUNT 4.29 x10e6/uL (4.3-5.7); RED CELL DISTRIBUTION WIDTH 14.3 % (11.7-14.4)
[2020-05-22 06:34] LABS: INR 1.74; PROTHROMBIN TIME 21.6 seconds (11.9-14.5)
[2020-05-22 06:35] LABS: PLATELET COUNT 112 x10e3/uL (140-360)
[2020-05-22 06:44] LABS: ALANINE AMINOTRANSFERASE 35 IU/L (0-55); ALBUMIN 2.9 g/dL (3.5-5.0); ALBUMIN/GLOBULIN RATIO 0.7 (0.8-2.0); ALKALINE PHOSPHATASE 133 IU/L (40-150); ANION GAP 13.7 mmol/L (8-16); BLOOD UREA NITROGEN 17 mg/dL (7-26); BUN/CREATININE RATIO 20 (6-25); CALCIUM 9.1 mg/dL (8.4-10.2); CARBON DIOXIDE 24 mmol/L (22-29); CHLORIDE 110 mmol/L (98-107); CREATININE, SERUM 0.84 mg/dL (0.72-1.25); EST GLOMERULAR FILTRATION RATE > 60 ML/MIN (60-); GLUCOSE 103 mg/dL (74-118); POTASSIUM 3.7 mmol/L (3.5-5.1); SODIUM 144 mmol/L (136-145)
[2020-05-22] MEDS: INSULIN LISPRO 100 UNIT/1 ML 3ML VIAL SQ SCH ×4 (07:30→21:23)
[2020-05-22] MEDS: INSULIN REGULAR, HUMAN 100 UNIT/1 ML 3ML VIAL SQ SCH ×2 (09:00→16:45)
[2020-05-22] MEDS: SPIRONOLACTONE 25 MG TAB PO SCH (10:00)
[2020-05-22] MEDS: TAMSULOSIN HCL 0.4 MG CAP PO SCH (10:00)
[2020-05-22] MEDS: MULTIVITAMINS/MINERALS TAB PO SCH (10:00)
[2020-05-22] MEDS: PROPRANOLOL HCL 10 MG TAB PO SCH ×2 (10:00→16:45)
[2020-05-22] MEDS: METOCLOPRAMIDE HCL 10 MG TAB PO SCH ×2 (10:00→16:45)
[2020-05-22] MEDS: CYANOCOBALAMIN 1,000 MCG TAB PO SCH (10:00)
[2020-05-22] MEDS: PANTOPRAZOLE SOD 40 MG TABEC PO SCH (10:00)
[2020-05-22] MEDS: FUROSEMIDE 40 MG TAB PO SCH (10:00)
[2020-05-22] MEDS: FOLIC ACID 1 MG TAB PO SCH (10:00)
[2020-05-22] MEDS: FERROUS SULFATE 325 MG TAB PO SCH (10:00)
[2020-05-22] MEDS: RIFAXIMIN 550 MG TABLET PO SCH ×2 (10:00→16:45)
[2020-05-22] MEDS: THIAMINE HCL 100 MG TAB PO SCH (10:00)
[2020-05-22] MEDS: LEVETIRACETAM 500 MG TAB PO SCH ×2 (10:00→16:44)
[2020-05-22 13:11] LABS: IGG/ALB RATIO CSF 0.24 (0.00-0.25)
[2020-05-22 13:24] LABS: CSF/SERUM ALBUMIN INDEX 10 (0-8)
[2020-05-22] MEDS: LACTULOSE SYRUP 20 GM/30 ML UDC PO SCH ×2 (15:15→18:21)
[2020-05-23 00:16] VITALS: BP 131/83
[2020-05-23] MEDS: LACTULOSE SYRUP 20 GM/30 ML UDC PO SCH ×4 (00:33→18:35)
[2020-05-23 01:14] VITALS: BP 135/67
[2020-05-23] MEDS: LEVOFLOXACIN 500 MG TAB PO SCH (05:46)
[2020-05-23 07:09] VITALS: BP 152/83
[2020-05-23 08:30] VITALS: BP 153/79
[2020-05-23] MEDS: INSULIN REGULAR, HUMAN 100 UNIT/1 ML 3ML VIAL SQ SCH ×2 (09:00→17:00)
[2020-05-23] MEDS: INSULIN LISPRO 100 UNIT/1 ML 3ML VIAL SQ SCH ×4 (09:15→21:00)
[2020-05-23] MEDS: PROPRANOLOL HCL 10 MG TAB PO SCH ×2 (10:00→18:00)
[2020-05-23] MEDS: PANTOPRAZOLE SOD 40 MG TABEC PO SCH (10:00)
[2020-05-23] MEDS: FUROSEMIDE 40 MG TAB PO SCH (10:00)
[2020-05-23] MEDS: RIFAXIMIN 550 MG TABLET PO SCH ×2 (10:00→18:00)
[2020-05-23] MEDS: CYANOCOBALAMIN 1,000 MCG TAB PO SCH (10:00)
[2020-05-23] MEDS: LEVETIRACETAM 500 MG TAB PO SCH ×2 (10:00→18:00)
[2020-05-23] MEDS: THIAMINE HCL 100 MG TAB PO SCH (10:00)
[2020-05-23] MEDS: SPIRONOLACTONE 25 MG TAB PO SCH (10:00)
[2020-05-23] MEDS: TAMSULOSIN HCL 0.4 MG CAP PO SCH (10:00)
[2020-05-23] MEDS: METOCLOPRAMIDE HCL 10 MG TAB PO SCH ×2 (10:00→18:00)
[2020-05-23] MEDS: MULTIVITAMINS/MINERALS TAB PO SCH (10:00)
[2020-05-23] MEDS: FERROUS SULFATE 325 MG TAB PO SCH (10:00)
[2020-05-23] MEDS: FOLIC ACID 1 MG TAB PO SCH (10:00)
[2020-05-23 15:51] LABS: BODY FLUID APPEARANCE CLOUDY; BODY FLUID COLOR RED; BODY FLUID TYPE PERITONEAL
[2020-05-23 16:12] LABS: RBC,BODY FLUID 8229 cells/uL; WBC,BODY FLUID 780 cells/uL
[2020-05-23 16:46] LABS: LYMPHOCYTES,BODY FLUID 32 %; MONO/MACROPHG,BODY FLUID 11 %; NEUTROPHILS,BODY FLUID 44 %; OTHER CELLS,BODY FLUID 13 %
[2020-05-23 20:12] VITALS: BP 116/79
[2020-05-23 21:37] VITALS: BP 119/72
[2020-05-24 01:36] VITALS: BP 134/62
[2020-05-24] MEDS: LACTULOSE SYRUP 20 GM/30 ML UDC PO SCH ×3 (01:45→12:00)
[2020-05-24] MEDS: LEVOFLOXACIN 500 MG TAB PO SCH (06:00)
[2020-05-24 06:16] LABS: BASOPHILS # (AUTO) 0.1 (0.0-0.1); BASOPHILS % 0.6 % (0.0-1.0); EOSINOPHILS # (AUTO) 0.4 (0.0-0.4); EOSINOPHILS % 4.8 % (0.0-6.0); HEMATOCRIT 41.7 % (38.2-49.6); HEMOGLOBIN 13.6 g/dL (14.0-18.0); LYMPHOCYTES # (AUTO) 1.2 (1.0-3.2); LYMPHOCYTES % 14.1 % (18.0-39.1); MEAN CORPUSCULAR HEMOGLOBIN 32.2 pg (28-32); MEAN CORPUSCULAR HGB CONC 32.6 g/dL (31-35); MEAN CORPUSCULAR VOLUME 98.6 fL (81-99); MONOCYTES # (AUTO) 0.9 (0.2-0.8); NEUTROPHILS % 69.8 % (38.7-80.0); PLATELET COUNT 100 x10e3/uL (140-360); RED BLOOD COUNT 4.23 x10e6/uL (4.3-5.7); RED CELL DISTRIBUTION WIDTH 14.2 % (11.7-14.4)
[2020-05-24 06:27] LABS: INR 1.71; PARTIAL THROMBOPLASTIN TIME 37.3 seconds (23.8-35.5); PROTHROMBIN TIME 21.3 seconds (11.9-14.5)
[2020-05-24 06:46] LABS: ALANINE AMINOTRANSFERASE 27 IU/L (0-55); ALBUMIN 2.8 g/dL (3.5-5.0); ALBUMIN/GLOBULIN RATIO 0.7 (0.8-2.0); ALKALINE PHOSPHATASE 120 IU/L (40-150); ANION GAP 15.7 mmol/L (8-16); BLOOD UREA NITROGEN 17 mg/dL (7-26); BUN/CREATININE RATIO 19 (6-25); CALCIUM 8.6 mg/dL (8.4-10.2); CARBON DIOXIDE 21 mmol/L (22-29); CHLORIDE 108 mmol/L (98-107); EST GLOMERULAR FILTRATION RATE > 60 ML/MIN (60-); GLUCOSE 219 mg/dL (74-118); POTASSIUM 3.7 mmol/L (3.5-5.1); SODIUM 141 mmol/L (136-145)
[2020-05-24] MEDS: INSULIN LISPRO 100 UNIT/1 ML 3ML VIAL SQ SCH ×2 (07:30→11:30)
[2020-05-24 08:25] VITALS: BP 113/86
[2020-05-24] MEDS: FERROUS SULFATE 325 MG TAB PO SCH (08:37)
[2020-05-24] MEDS: SPIRONOLACTONE 25 MG TAB PO SCH (08:37)
[2020-05-24] MEDS: FOLIC ACID 1 MG TAB PO SCH (08:37)
[2020-05-24] MEDS: TAMSULOSIN HCL 0.4 MG CAP PO SCH (08:37)
[2020-05-24] MEDS: PROPRANOLOL HCL 10 MG TAB PO SCH (08:38)
[2020-05-24] MEDS: METOCLOPRAMIDE HCL 10 MG TAB PO SCH (08:39)
[2020-05-24] MEDS: THIAMINE HCL 100 MG TAB PO SCH (08:39)
[2020-05-24] MEDS: PANTOPRAZOLE SOD 40 MG TABEC PO SCH (08:39)
[2020-05-24] MEDS: MULTIVITAMINS/MINERALS TAB PO SCH (08:39)
[2020-05-24] MEDS: CYANOCOBALAMIN 1,000 MCG TAB PO SCH (08:39)
[2020-05-24] MEDS: LEVETIRACETAM 500 MG TAB PO SCH (08:39)
[2020-05-24] MEDS: RIFAXIMIN 550 MG TABLET PO SCH ×2 (08:40→09:00)
[2020-05-24 09:00] VITALS: BP 113/86
[2020-05-24] MEDS: INSULIN REGULAR, HUMAN 100 UNIT/1 ML 3ML VIAL SQ SCH (09:00)
[2020-05-24] MEDS: FUROSEMIDE 40 MG TAB PO SCH (10:10)
[2020-05-24 12:12] VITALS: BP 90/41
== END 2020-05-24 11:53 | disposition short-term general hospital (02) | DRG 871 ==
LOC: ER 14:00 → ERHOLD 18:17 → MED/SURG3 21:23
PROVIDERS: ADMIT Internal Medicine; ATTEND Internal Medicine
PROC: 0W9G3ZZ Drainage of Peritoneal Cavity, Percutaneous Approach (ICD-10-PCS; principal; 2020-05-15)
PROC: 009U3ZX Drainage of Spinal Canal, Percutaneous Approach, Diagnostic (ICD-10-PCS; 2020-05-19)
PROC: B01B1ZZ Fluoroscopy of Spinal Cord using Low Osmolar Contrast (ICD-10-PCS; 2020-05-19)
PROC: 0W9G3ZZ Drainage of Peritoneal Cavity, Percutaneous Approach (ICD-10-PCS; 2020-05-23)
DX: A41.9 Sepsis, unspecified organism (principal); J69.0 Pneumonitis due to inhalation of food and vomit; J15.6 Pneumonia due to other Gram-negative bacteria; G92 Toxic encephalopathy; K72.00 Acute and subacute hepatic failure without coma; K65.2 Spontaneous bacterial peritonitis; N39.0 Urinary tract infection, site not specified; G40.901 Epilepsy, unspecified, not intractable, with status epilepticus; I10 Essential (primary) hypertension; E11.9 Type 2 diabetes mellitus without complications; K21.9 Gastro-esophageal reflux disease without esophagitis; E66.9 Obesity, unspecified; E88.09 Other disorders of plasma-protein metabolism, not elsewhere classified; Z20.822 Contact with and (suspected) exposure to COVID-19; F03.90 Unspecified dementia, unspecified severity, without behavioral disturbance, psychotic disturbance, mood disturbance, and anxiety; R33.9 Retention of urine, unspecified; E11.42 Type 2 diabetes mellitus with diabetic polyneuropathy; K70.31 Alcoholic cirrhosis of liver with ascites; R09.02 Hypoxemia
CPT/HCPCS: 36415; 49083; 62328; 70450; 70496; 70498; 70551; 71045; 74177; 74470; 76705; 80048; 80053; 81001; 82040; 82105; 82140; 82150; 82550; 82553; 82784; 82945; 82948; 83615; 83690; 83735; 83880; 83916; 84100; 84157; 84484; 85025; 85610; 85651; 85730; 86022; 86592; 86789; 87040; 87070; 87086; 87116; 87205; 87206; 87476; 87529; 87798; 88112; 88305; 89051; 93005; 93306; 95819; 96367; 96372; 97139; 99251; 99284; C1769; J0456; J0696; J1817; J2060; J2543; J2930; J3370; J3411; J7050; J7070; Q9967; U0002